=== PATIENT | female | born 1970 | race Caucasian/White ===

== ENCOUNTER 2021-05-25 11:02 | Emergency (ER) | payer BC ==
--- NOTE | 2021-05-25 11:53 | EDM.PDOC ---
ED HPI GENERAL MEDICAL PROBLEM - General Chief Complaint: Cardiovascular Problem Stated Complaint: HEART PROBLEMS Time Seen by Provider: 05/25/21 11:35 Source of Information: Reports: Patient History Limitations: Reports: No Limitations - History of Present Illness INITIAL COMMENTS - FREE TEXT/NARRATIVE: 50-year-old female who normally does not have anxiety issues, woke up last night and had a piece of cake and some milk at 1 AM and developed palpitations. For the next 3 hours she had persistent palpitations, she could feel her pulse into her neck, and she felt anxious and short of breath. She finally fell asleep and slept till 930 and when she got up this morning she continued to feel symptoms so came in to be seen. She arrived very anxious, complaining of palpitations and mild chest pressure. No fevers or chills, no nausea or vomiting, no diaphoresis, she is not Covid vaccinated. She does not have a history of anxiety. She is on no medications and does not usually go to the doctor, she is a fairly heavy smoker. Onset: Sudden Duration: Hour(s): (Symptoms started fairly suddenly about 11 hours ago, at 1 AM) Location: Reports: Chest Improves with: Reports: Other (Seems to help sitting up) Associated Symptoms: Reports: Chest Pain (Mild pressure), Malaise, Shortness of Breath. Denies: Confusion, Diaphoresis, Fever/Chills, Nausea/Vomiting, Weakness - Related Data Allergies Allergy/AdvReac Type Severity Reaction Status Date / Time No Known Allergies Allergy Verified 05/25/21 11:28 Home Meds: Home Meds NK [No Known Home Meds] 10/14/13 [History] Past Medical History Cardiovascular History: Reports: None Respiratory History: Reports: None Gastrointestinal History: Reports: None Genitourinary History: Reports: None [employer] History: Reports: None Musculoskeletal History: Reports: None Neurological History: Reports: Migraines Psychiatric History: Reports: None Endocrine/Metabolic History: Reports: None Hematologic History: Reports: None Immunologic History: Reports: None Oncologic (Cancer) History: Reports: None Dermatologic History: Reports: None - Infectious Disease History Infectious Disease History: Reports: Chicken Pox - Past Surgical History HEENT Surgical History: Reports: Tonsillectomy GI Surgical History: Reports: None Social & Family History - Tobacco Use Tobacco Use Status *Q: Current Every Day Tobacco User Years of Tobacco use: 30 Packs/Tins Daily: 0.5 - Caffeine Use Caffeine Use: Reports: Coffee, Soda - Recreational Drug Use Recreational Drug Use: No ED ROS GENERAL - Review of Systems Review Of Systems: See Below Constitutional: Reports: Malaise. Denies: Fever, Chills HEENT: Reports: Throat Pain (Feels a pressure in her throat, she can feel her pulse). Denies: Rhinitis, Vision Change Respiratory: Denies: Cough Cardiovascular: Reports: Chest Pain (Mild pressure) GI/Abdominal: Reports: No Symptoms : Reports: No Symptoms Musculoskeletal: Reports: No Symptoms Skin: Reports: No Symptoms Neurological: Reports: Dizziness. Denies: Headache, Weakness ED EXAM, GENERAL - Physical Exam Exam: See Below Exam Limited By: No Limitations General Appearance: Alert, Anxious Eye Exam: Bilateral Eye: Normal Inspection Head: Atraumatic Neck: Supple Respiratory/Chest: Lungs Clear Cardiovascular: Regular Rate, Rhythm, Other (cafeteria monitor shows normal sinus rhythm at a rate of 88-92). No: Extra Beats GI/Abdominal: Non-Tender Extremities: Normal Inspection. No: Pedal Edema Neurological: Alert, Oriented, No Motor/Sensory Deficits Psychiatric: Anxious Skin Exam: Warm, Dry Course - Vital Signs Last Recorded V/S: Last Vital Signs Temp 97.2 F 05/25/21 11:26 Pulse 76 05/25/21 11:26 Resp 18 05/25/21 11:26 BP 144/86 H 05/25/21 11:26 Pulse Ox 98 05/25/21 11:26 - Orders/Labs/Meds Orders: Active Orders 24 hr Category Date Time Status DRUG SCREEN, URINE [URCHEM] Stat Lab 05/25/21 11:48 Ordered UA W/MICROSCOPIC [URIN] Urgent Lab 05/25/21 11:48 Ordered Isolation [COMM] Stat Oth 05/25/21 11:49 Ordered Labs: Laboratory Tests 05/25/21 05/25/21 05/25/21 Range/Units 11:48 11:59 11:59 WBC 11.1 H (3.2-11.0) K/uL RBC 5.18 (3.77-5.24) M/uL Hgb 14.7 (11.2-15.5) Hct 43.5 (34.3-46.0) % MCV 84.0 (81.4-99.0) fL MCH 28.4 L (31.6-35.5) pg MCHC 33.8 (31.6-35.5) g/dL Plt Count 400 H (130-375) K/uL Immature Gran % (Auto) 0.3 (0.0-0.7) % Neut % (Auto) 62.6 (40.0-78.1) % Lymph % (Auto) 28.8 (11.4-47.7) % F[place]ardo % (Auto) 6.8 (3.3-12.6) % Eos % (Auto) 0.6 (0.0-5.4) % Baso % (Auto) 0.9 (0.1-1.3) % Neut # (Auto) 6.96 (1.0-7.6) K/uL Lymph # (Auto) 3.20 (0.8-3.3) K/uL [place]ardo # (Auto) 0.75 (0.20-0.90) K/uL Eos # (Auto) 0.07 (0.00-0.40) K/uL Baso # (Auto) 0.10 (0.00-0.10) K/uL Immature Gran # (Auto) 0.03 (0.00-0.23) K/uL Sodium 139 L (140-148) mmol/L Potassium 3.9 (3.6-5.2) mmol/L Chloride 103 (100-108) mmol/L Carbon Dioxide 24 (21-32) mmol/L Anion Gap 15.9 H (5.0-14.0) mmol/L BUN 10 (7-18) mg/dL Creatinine 0.8 (0.6-1.0) mg/dL Est Cr Clr Drug Dosing 83.40 mL/min Estimated GFR (MDRD) > 60 (>60) Glucose 123 H (74-106) mg/dL Calcium 8.7 (8.5-10.1) mg/dL Troponin I High Sens 5.3 (<=60.3) pg/mL TSH, Ultra Sensitive 2.366 (0.358-3.740) uIU/mL Influenza Type A RNA Negative (NEGATIVE) RSV RNA (INAAT) Negative (NEGATIVE) Influenza Type B RNA Negative (NEGATIVE) SARS-CoV-2 RNA (RYLAN) Negative (NEGATIVE) - Re-Assessments/Exams Free Text/Narrative Re-Assessment/Exam: 05/25/21 11:52 Patient will be kept on cardiac monitoring, we will check a 4 Plex viral study, CBC, BMP, troponin and TSH. She looks very stable at this time. We will also check a urine for drug screen and UA. 05/25/21 13:08 Labs are all reassuring including a normal TSH and troponin. Patient was unable to give a UA, however I am not concerned about drug abuse in this patient so this will be canceled. She remained in a sinus rhythm throughout the hour and a half she was in the hospital emergency room. I encouraged her to return if symptoms recur and are persistent, or if they are waxing and waning she may consider going to the clinic and getting set up with a Holter monitor. For Plex viral study is still pending however she did not cooperate for a good sample. 05/25/21 13:30 Viral studies were negative. Departure - Departure Time of Disposition: 13:23 Disposition: Home, Self-Care 01 Clinical Impression: Palpitations Instructions: Palpitations, [id number] Referrals: PCP,None [Primary Care Provider] - Forms: ED Department Discharge Care Plan Goals: Stay hydrated, increase activity as tolerated and consider rechecking with your primary provider for a Holter monitor or further evaluation if your symptoms are recurring. Return to the emergency room anytime if you have persistent symptoms of irregular heartbeat or chest pain. Sepsis Event Note (ED) - Evaluation Sepsis Screening Result: No Definite Risk - Focused Exam Vital Signs: Vital Signs Temp Pulse Resp BP Pulse Ox 05/25/21 11:26 97.2 F 76 18 144/86 H 98 - My Orders Last 24 Hours: My Active Orders 05/25/21 11:48 DRUG SCREEN, URINE [URCHEM] Stat UA W/MICROSCOPIC [URIN] Urgent 05/25/21 11:49 Isolation [COMM] Stat - Assessment/Plan Last 24 Hours: My Active Orders 05/25/21 11:48 DRUG SCREEN, URINE [URCHEM] Stat UA W/MICROSCOPIC [URIN] Urgent 05/25/21 11:49 Isolation [COMM] Stat
[2021-05-25 12:53] LABS: CORONAVIRUS COVID-19 NAA NEGATIVE (NEGATIVE)
== END 2021-05-25 13:26 | disposition home or self-care (01) ==
LOC: JP.ED 11:02 → MERGE 11:02 → JP.ED 13:26
DX: R00.2 Palpitations (principal); Z72.0 Tobacco use; Z20.822 Contact with and (suspected) exposure to COVID-19
CPT/HCPCS: 0241U; 36415; 80048; 84443; 84484; 85025; 99283; 99284

== ENCOUNTER 2022-07-28 18:56 | Emergency (ER) | payer BC ==
[2022-07-28] MEDS ORDERED: Famotidine 20 MG Tab PO ONE (19:47)
[2022-07-28] MEDS ORDERED: Alum Hydrox/Mag Hydrox/Simeth 15 ML, Lidocaine 2% 15 ML PO ONE ×2 (19:47)
[2022-07-28 20:19] LABS: ESTIMATED GFR 88 mL/min (>60)
[2022-07-28] MEDS ORDERED: Pantoprazole 40 MG Tab.CR PO ONE (21:00)
[2022-07-29] MEDS ORDERED: Pantoprazole 40 MG Tab.CR PO ONE (09:00)
== END 2022-07-28 22:05 | disposition home or self-care (01) ==
LOC: JP.ED 18:56
DX: R12 Heartburn (principal); Z72.0 Tobacco use
CPT/HCPCS: 36415; 74019; 80053; 85025; 99283; 99284; A9270